=== PATIENT | female | born 1960 | race Caucasian/White ===

== ENCOUNTER 2024-07-26 21:42 | Emergency (ER) | payer OTHER, SELFPAY ==
[2024-07-26 21:45] VITALS: BP 159/101
--- NOTE | 2024-07-26 22:40 | ED.GENMED ---
History of Present Illness
General
Chief Complaint: Fall
Source: patient
Exam Limitations: none
Time Seen by Provider: 07/26/24 22:30
History of Present Illness
History of Present Illness:
This is a 64 year old female that comes in with c/o fall. States that she was walking down the steps from the bathroom at [place] and she tripped falling down 10 -15 steps. States that she did have 1.5 Martin[place]. States that they where carpeted.
States that she landed on her face and chest. States that she has an abrasion of the right forehead and this is sore and her chest is tender over the sternum. States that she does have a headache. Denies any LOC. Denies any fever, chills, chest
pain, SOB, abd pain, nausea, vomiting, diarrhea.
Past History
Past History
ED Past Medical History: HTN; Negative Asthma, Hypercholesterolemia or NIDDM
ED Past Surgical History: None
Social History
Tobacco: Non-smoker
Alcohol: Occasional
Personal:
Living: with family
Review of Systems
Review of Systems
All Other Systems: ROS reviewed and negative except as documented in HPI and ROS
Constitutional: Reports no symptoms; Denies fever or chills
EENT: Reports no symptoms
Respiratory: Reports no symptoms; Denies cough or trouble breathing
Cardiac: Reports no symptoms
ABD/GI: Reports no symptoms; Denies abdominal pain, nausea, vomiting or diarrhea
: Reports no symptoms; Denies dysuria, frequency or urgency
Musculoskeletal: Reports other (Sternal tenderness, )
Skin: Reports other (abrasion right forehead and left base of thumb)
Neurological: Reports headache; Denies dizzy
Psychiatric: Reports no symptoms
Phy Exam
General Physical Exam
General Presentation: well appearing and no apparent distress
General age: appears stated age
General Skin: warm and dry
General Habitus: normal
General Mental: alert
General Hydration: appears well hydrated
ENT Exam
ENT Exam: TM's normal, pharynx normal and neck supple
Eye Exam
Eye Exam: EOMI
Cardiovascular Exam
Cardiovascular Exam: regular rate/rhythm, no edema and normal peripheral pulses
Pulmonary Exam
Pulmonary Exam: lungs clear, no respiratory distress, no rales, chest non tender, no crackles, no rhonchi, no wheezing and no cough
Gastrointestinal Exam
Gastrointestinal Exam: normal bowel sounds, non tender, soft, no organomegaly, no pulsatile mass and non distended
Musculoskeletal Exam
Musculoskeletal Exam: full ROM, no edema and other (Negative cervical neck tenderness. Patient can cross over abduct, flex elbows, move wrist and fingers without discomfort. Negative discomfort with knee flexion, inversion or eversion. Negative pain
with flexion of ankles. )
Skin Exam
Skin Exam: normal color, warm/dry, no petechia and other (abrasion to the right sided of the forehead and left hand at base of thumb)
Psychiatric Exam
Psychiatric Exam: normal mood/affect
Course
Orders/Labs/Results
Orders:
Orders
07/26/24 22:38
CT Head W/o Iv Contrast Urgent
Comment:
Reason For Exam: FALL HITTING HEAD
07/26/24 22:[address] Non Medication Order As Directed
Physician Order: Ice to forehead
Above order entered?: Yes
07/26/24 22:42
CT Chest W/o Iv Contrast Urgent
Comment:
Reason For Exam: fall, sternal pain
07/26/24 22:43
Acetaminophen [Tylenol] 1,000 mg PO NOW STA
Vital Signs
Initial and Last Documented VS:
Initial Vital Signs
Temp Pulse Resp BP Pulse Ox
98.8 F 88 16 159/101 98
07/26/24 21:45 07/26/24 21:45 07/26/24 21:45 07/26/24 21:45 07/26/24 21:45
Last Documented Vital Signs
Temp Pulse Resp BP Pulse Ox
98.8 F 88 16 159/101 98
07/26/24 21:45 07/26/24 21:45 07/26/24 21:45 07/26/24 21:45 07/26/24 21:45
MDM/Problems Addressed
Differential Diagnosis Includes:
Concussion, Subdural hematoma. Sternal fracture
MDM/Problems Addressed:
This is a 64 year old female that comes in with c/o fall. States that she fell down 10-15 steps face first. States that she has a headache with sternal discomfort.
Will get CT head and chest.
back into see patient. Explained that the CT of the head and sternum are negative for any acute process. Encouraged patient to use ice to any area that is sore. will wake patient up once tonight to make sure she is arousable and knows who he
is. Patient to return with Headache not relieved by Tylenol, vomiting more then twice or any other concerns.
Chronic conditions affecting care:
NA
Acute Exacerbation and/or Progression of Chronic Illness:
NA
*Radiology
Radiology exam reviewed: radiology read reviewed (Chest CT-No acute cardiopulmonary disease. No acute osseous abnormalities. 4cm hiatal hernia. CT head=There are no focal or acute intracranial abnormalities. There is mild cortical and cerebellar
atrophy. There is a 4mm left forehead scalp hematoma. )
*Pulse Oximetry
Patient hypoxic: no
*EKG
Interpreted by ED Provider?: NA
Rate: EKG- N/A
*Wrapper Sizer Interpretation
Rate: Wrapper Sizer- N/A
*Critical Care Note
Total Time (30-74mins, 75-104mins- exclusive of procedures): Not Applicable
ED Attending Note
-
Portions of this chart may have been created with voice recognition software.� Occasional wrong word or��sound alike� substitutions may have occurred due to the inherent limitations of voice recognition software.
Discharge Plan
Departure
Patient Disposition: Home (Routine Discharge)
Date of Disposition: 07/26/24
Time of Disposition: 23:39
Patient with high blood pressure during this ER visit?: Yes
Condition: Good
Covid-19: Not Applicable
Discharge Problem:
Accidental fall, Abrasion of forehead
Instructions: Preventing falls in adults, Skin Abrasions (DC), BLOOD PRESSURE
Referrals:
Bharat Hernandez MD [Family Provider] - Call in 1-3 days for appt
Activity Restrictions/Additional Instructions:
As discussed, your CT of the head and sternum is negative for any acute process. You will be mores sore tomorrow then today. Please use ice to any area that is sore. Bacitracin to the abrasion. Tylenol or Ibuprofen for headache pain or body pains.
Follow up with the family doctor for recheck. Please have your awake you once during the night to make sure you are arousable and you can go right back to sleep. IF YOU HAVE ANY OTHER CONCERNS PLEASE RETURN TO THE EMERGENCY ROOM.
Interventions
Interventions:
*Risk Screen - Suicide Last Done: 07/26/24 21:45
ED-Musculoskeletal Assessment Last Done: 07/26/24 22:55
ED- Neurological Assessment Last Done: 07/26/24 22:55
ED-Skin Assessment Last Done: 07/26/24 22:55
Discharge Date and Time
Print Language: [id number]
[2024-07-26] MEDS: TYLENOL 1000 MG PO (22:49)
[2024-07-26 23:52] VITALS: BP 155/91
== END 2024-07-26 23:54 | disposition home or self-care (01) ==
LOC: EMR 21:42
PROVIDERS: EMERGENCY PHYSICIAN Emergency Medicine; FAMILY PHYSICIAN Internal Medicine
DX: S00.81XA Abrasion of other part of head, initial encounter (principal); S00.03XA Contusion of scalp, initial encounter; S60.312A Abrasion of left thumb, initial encounter; R51.9 Headache, unspecified; R07.89 Other chest pain; W10.9XXA Fall (on) (from) unspecified stairs and steps, initial encounter; Y93.01 Activity, walking, marching and hiking; K44.9 Diaphragmatic hernia without obstruction or gangrene; I10 Essential (primary) hypertension
CPT/HCPCS: 99284; 70450; 71250